=== PATIENT | female | born 1950 | race Caucasian/White ===

== ENCOUNTER 2023-09-14 10:00 | Outpatient (RCR) | payer MEDICARE, SELFPAY | END 2023-09-25 10:31 | disposition home or self-care (01) | PROVIDERS: PCP Psychiatry & Neurology Neurology; Visit Provider Psychiatry & Neurology Neurology | DX: G20.A1 Parkinson's disease without dyskinesia, without mention of fluctuations (principal); R26.89 Other abnormalities of gait and mobility; Z51.89 Encounter for other specified aftercare | CPT/HCPCS: 97110; 97112; 97116; 97161; 97530 ==

== ENCOUNTER 2024-02-21 09:45 | Outpatient (RCR) | payer MEDICARE, SELFPAY | END 2024-05-13 12:43 | disposition home or self-care (01) | PROVIDERS: PCP Psychiatry & Neurology Neurology; Visit Provider Psychiatry & Neurology Neurology | DX: G20.A1 Parkinson's disease without dyskinesia, without mention of fluctuations (principal); Z51.89 Encounter for other specified aftercare | CPT/HCPCS: 97110; 97140; 97161 ==